=== PATIENT | female | born 1990 | race Caucasian/White ===

== ENCOUNTER → 2016-05-29 | Outpatient (CLI) | payer OTHER, BC ==
[2016-05-29 11:07] LABS: CHLORIDE,CL 100 mmol/L (98-115); SODIUM,NA 138 mmol/L (136-145)
== END ==
LOC: KA.OC 09:55
PROVIDERS: ATTEND Internal Medicine
DX: R53.83 Other fatigue (principal); Z86.39 Personal history of other endocrine, nutritional and metabolic disease
CPT/HCPCS: 36415; 80053; 84443

== ENCOUNTER 2017-06-23 13:55 | Emergency (ER) | payer OTHER ==
--- NOTE | 2017-06-23 14:01 | EDM.PDOC ---
ED HPI GENERAL MEDICAL PROBLEM - General Chief Complaint: Headache Stated Complaint: headache Time Seen by Provider: 06/23/17 14:01 Source of Information: Reports: Patient History Limitations: Reports: No Limitations - History of Present Illness INITIAL COMMENTS - FREE TEXT/NARRATIVE: 27 yo JESSIE presents to ER with headache which began this am when she woke. Pt reports taking imitrex without relief. Pt reports associated vomiting. Pt states this is the typical headache she gets but usually it's relieved by imitrex. Pt denies any head injury, denies any known triggers for her headaches. Pt denies any fever/chills. Pt reports associated photophobia. Onset: Today Duration: Hour(s): (6) Location: Reports: Head Quality: Reports: Ache Severity: Moderate Improves with: Reports: None Worsens with: Reports: None Associated Symptoms: Reports: Headaches, Nausea/Vomiting. Denies: Confusion, Chest Pain, Cough, Fever/Chills, Seizure, Shortness of Breath, Syncope, Weakness Head Pain Score (Numeric/FACES): 5 - Related Data Allergies Allergy/AdvReac Type Severity Reaction Status Date / Time Penicillins Allergy Cannot Verified 06/23/17 14:05 Remember ED ROS GENERAL - Review of Systems Review Of Systems: See Below Constitutional: Reports: No Symptoms HEENT: Reports: No Symptoms Respiratory: Reports: No Symptoms Cardiovascular: Reports: No Symptoms Endocrine: Reports: No Symptoms GI/Abdominal: Reports: No Symptoms : Reports: No Symptoms Musculoskeletal: Reports: No Symptoms Skin: Reports: No Symptoms Neurological: Reports: Headache. Denies: Dizziness, Seizure, Trouble Speaking, Difficulty Walking, Change in Speech, Gait Disturbance Psychiatric: Reports: No Symptoms Hematologic/Lymphatic: Reports: No Symptoms Immunologic: Reports: No Symptoms - Physical Exam Exam: See Below Exam Limited By: No Limitations General Appearance: Alert, WD/WN, Mild Distress Eye Exam: Bilateral Eye: EOMI, PERRL Ears: Normal External Exam, Normal Canal, Hearing Grossly Normal, Normal TMs Nose: Normal Inspection, Normal Mucosa, No Blood Throat/Mouth: Normal Inspection Head Exam: Atraumatic, Normocephalic Neck: Normal Inspection, Supple, Non-Tender, Full Range of Motion Respiratory/Chest: No Respiratory Distress, Lungs Clear, Normal Breath Sounds, No Accessory Muscle Use, Chest Non-Tender Cardiovascular: Normal Peripheral Pulses, Regular Rate, Rhythm, No Edema, No Gallop, No JVD, No Murmur, No Rub GI/Abdominal: Normal Bowel Sounds, Soft, Non-Tender, No Organomegaly, No Distention, No Abnormal Bruit, No Mass Neuro Exam (Abbreviated): Alert, Oriented, CN II-XII Intact, Normal Cognition, Normal Gait, Normal Reflexes, No Motor/Sensory Deficits Back Exam: Normal Inspection, Full Range of Motion, NT Extremities: Normal Inspection, Normal Range of Motion, Non-Tender, No Pedal Edema, Normal Capillary Refill Psychiatric: Normal Affect, Normal Mood, Tearful Skin Exam: Warm, Dry, Intact, Normal Color, No Rash Course - Vital Signs Last Recorded V/S: Last Vital Signs Temp 36.2 C 06/23/17 14:07 Pulse 98 06/23/17 14:07 Resp 16 06/23/17 14:07 BP 124/85 06/23/17 14:07 Pulse Ox 100 06/23/17 14:07 - Orders/Labs/Meds Meds: Medications Discontinued Medications Generic Name Dose Route Start Last Admin Trade Name Ivana PRN Reason Stop Dose Admin Diphenhydramine HCl 50 mg 06/23/17 14:04 06/23/17 14:19 Benadryl IVPUSH 06/23/17 14:05 50 mg ONETIME ONE Administration Ketorolac Tromethamine 30 mg 06/23/17 14:04 06/23/17 14:21 Toradol IVPUSH 06/23/17 14:05 30 mg ONETIME ONE Administration Ondansetron HCl 4 mg 06/23/17 14:05 06/23/17 14:17 Zofran IVPUSH 06/23/17 14:06 4 mg ONETIME ONE Administration - Re-Assessments/Exams Free Text/Narrative Re-Assessment/Exam: 06/23/17 15:01 headache resolved with pain medication. Pt denies any nausea at this time. Pt states she's ready to be discharged Departure - Departure Time of Disposition: 15:00 Disposition: Home, Self-Care 01 Condition: Good Clinical Impression: Migraine - Discharge Information Instructions: Migraine Headache, [id number] Forms: ED Department Discharge - Assessment/Plan Assessment:: 1. Migraine Headache Plan: 1. Discharge home 2. rest/plenty of fluids 3. follow up with PCP for further evaluation and treatment 4. return to ER for worsening symptoms
[2017-06-23] MEDS ORDERED: diphenhydrAMINE 50 MG/ML SDV IVPUSH ONE (14:04)
[2017-06-23] MEDS ORDERED: Ketorolac 30 MG/ML SDV IVPUSH ONE (14:04)
[2017-06-23] MEDS ORDERED: Ondansetron 4 MG/2 ML SDV IVPUSH ONE (14:05)
== END 2017-06-23 15:30 | disposition home or self-care (01) ==
LOC: KA.ED 13:55
DX: G43.909 Migraine, unspecified, not intractable, without status migrainosus (principal); Z88.0 Allergy status to penicillin
CPT/HCPCS: 96374; 96375; 99283; J1200; J1885; J2405

== ENCOUNTER 2017-11-28 13:52 | Emergency (ER) | payer OTHER ==
[2017-11-28 14:53] LABS: ANION GAP 7.9 mmol/L (5-15); CHLORIDE,CL 101 mmol/L (98-115); SODIUM,NA 134 mmol/L (136-145)
[2017-11-28] MEDS ORDERED: Metoprolol Tartrate 5 MG/5 ML SDV IVPUSH ONE (14:55)
--- NOTE | 2017-11-28 15:06 | EDM.PDOC ---
ED HPI GENERAL MEDICAL PROBLEM - General Chief Complaint: Cardiovascular Problem Stated Complaint: TACHYCARDIA Time Seen by Provider: 11/28/17 14:30 Source of Information: Reports: Patient History Limitations: Reports: No Limitations - History of Present Illness INITIAL COMMENTS - FREE TEXT/NARRATIVE: Patient presents with tachycardia and mid chest pressure that started at 0645 ( 8 hours ago) this morning after working out. She also noticed some tingling in her arms, nausea, and felt a little lightheaded. The feeling has not improved like she expected. She had a similar episode 11 months ago that lasted about an hour and was gone by the time she could see her PCP later that day. An EKG from that visit shows HR 65 compared to 116 today. She was prescribed a beta shikha but didn't take it long because she never had the tachycardia again until today. She wore a Holter monitor that didn't find any problem. She drinks two cups of coffee in the morning but only water (8-10 cups) the rest of the day. During the workout today she was doing lower extremity/squats. Yesterday she worked out her arms and upper body. Middle Chest Pain Score (Numeric/FACES): 6 - Related Data Allergies Allergy/AdvReac Type Severity Reaction Status Date / Time Penicillins Allergy Cannot Verified 11/28/17 14:03 Remember Home Meds: Home Meds Norgestimate-Ethinyl Estradiol [Tri-Linyah Tablet] 1 each PO DAILY 06/23/17 [ History] Phentermine 37.5 mg PO DAILY 06/23/17 [History] SUMAtriptan [Imitrex] 50 mg PO ASDIRECTED PRN 06/23/17 [History] Thyroid,Pork [Nature-Throid] 16.25 mg PO DAILY 06/23/17 [History] Thyroid,Pork [Nature-Throid] 97.5 mg PO DAILY 06/23/17 [History] Cholecalciferol (Vitamin D3) [Vitamin D] 5,000 unit PO DAILY 11/28/17 [History] Past Medical History HEENT History: Reports: Impaired Vision Cardiovascular History: Reports: Other (See Below) Other Cardiovascular History: tachycardia Gastrointestinal History: Reports: GERD 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: Neurological History: Reports: Migraines Psychiatric History: Reports: Anxiety, Depression - Infectious Disease History Infectious Disease History: Reports: Chicken Pox - Past Surgical History HEENT Surgical History: Reports: Tonsillectomy Cardiovascular Surgical History: Reports: None GI Surgical History: Reports: None Endocrine Surgical History: Reports: Thyroidectomy Other Endocrine Surgeries/Procedures: hashimotos Neurological Surgical History: Reports: None Social & Family History - Tobacco Use Smoking Status *Q: Former Smoker Years of Tobacco use: 8 Packs/Tins Daily: 1 Used Tobacco, but Quit: Yes Month/Year Tobacco Last Used: - Caffeine Use Caffeine Use: Reports: Coffee, Energy Drinks Other Caffeine Use: energize drink daily - Recreational Drug Use Recreational Drug Use: No ED ROS GENERAL - Review of Systems Review Of Systems: See Below Constitutional: Denies: Fever, Chills, Malaise, Weakness HEENT: Reports: Vertigo (She noticed a spinning feeling in her head along with nausea during her shower after the workout this morning. She has had the vertigo and nausea recur about 4 times through the day.), Vision Change (she calls it tunnel vision). Denies: Throat Pain Respiratory: Reports: Shortness of Breath. Denies: Cough Cardiovascular: Reports: Chest Pain, Lightheadedness. Denies: Syncope Endocrine: Reports: No Symptoms GI/Abdominal: Reports: Nausea. Denies: Abdominal Pain, Constipation, Diarrhea, Decreased Appetite, Vomiting : Denies: Discharge, Dysuria, Flank Pain Musculoskeletal: Reports: No Symptoms Skin: Denies: Cyanosis, Jaundice, Mottled, Pallor, Diaphoresis Neurological: Reports: Headache (slight). Denies: Confusion, Dizziness, Seizure , Syncope, Weakness Psychiatric: Reports: Anxiety (feels anxious about the fast heart rate but wasn' t feeling anxious previously). Denies: Agitation, Confusion ED EXAM, GENERAL - Physical Exam Exam: See Below Exam Limited By: No Limitations General Appearance: Alert, WD/WN, No Apparent Distress Eye Exam: Bilateral Eye: EOMI, Normal Inspection, PERRL Ears: Normal External Exam, Hearing Grossly Normal Nose: Normal Inspection, No Blood Neck: Normal Inspection, Supple, Non-Tender, Full Range of Motion. No: Carotid Bruit Respiratory/Chest: No Respiratory Distress, Lungs Clear, Normal Breath Sounds, No Accessory Muscle Use, Other (Palpation reveals tenderness over the mid sternum and medial rib junction at 4th and 5th rib bilat; worse on right. This pain is reproduced with resisted arm flexion toward the midline bilat. No crepitus or deformity noted.). No: Crackles, Rales, Rhonchi, Wheezing, Stridor Cardiovascular: Normal Peripheral Pulses, No Edema, No Gallop, No JVD, No Murmur , No Rub, Tachycardia. No: Irregularly Irregular Peripheral Pulses: 2+: Carotid (L), Carotid (R), Radial (L), Radial (R), Posterior Tibial (L), Posterior Tibial (R) GI/Abdominal: Normal Bowel Sounds, Soft, No Organomegaly, No Distention, No Abnormal Bruit, No Mass, Tender (mild suprapubic). No: Distended, Guarding, Rigid Back Exam: Normal Inspection, Full Range of Motion. No: CVA Tenderness (L), CVA Tenderness (R) Extremities: Normal Inspection, Normal Range of Motion, Non-Tender, No Pedal Edema Neurological: Alert, Oriented, Normal Cognition, No Motor/Sensory Deficits Psychiatric: Anxious Skin Exam: Warm, Dry, Intact, Normal Color, No Rash Course - Vital Signs Last Recorded V/S: Last Vital Signs Temp 98.4 F 11/28/17 13:58 Pulse 88 11/28/17 15:54 Resp 18 11/28/17 15:21 BP 121/66 11/28/17 15:54 Pulse Ox 96 11/28/17 15:21 - Orders/Labs/Meds Orders: Active Orders 24 hr Category Date Time Status EKG Documentation Completion [RC] ASDIRECTED Care 11/28/17 14:09 Active EKG Documentation Completion [RC] ASDIRECTED Care 11/28/17 15:15 Ordered Chest 1V Frontal [CR] Stat Exams 11/28/17 14:08 Ordered HCG QUALITATIVE,URINE [URCHEM] Stat Lab 11/28/17 14:10 Ordered EKG 12 Lead [EK] Routine Ther 11/28/17 14:08 Ordered EKG 12 Lead [EK] Routine Ther 11/28/17 15:15 Ordered Labs: Laboratory Tests 11/28/17 11/28/17 11/28/17 Range/Units 14:10 14:10 14:30 WBC 13.15 H (5.00-10.00) 10^3/uL RBC 5.11 (3.80-5.50) 10^6/uL Hgb 15.0 (12.0-16.0) g/dL Hct 44.0 (37.0-47.0) % MCV 86.1 (82.0-92.0) fL MCH 29.4 (27.0-31.0) pg MCHC 34.1 (32.0-36.0) g/dL RDW 12.0 (11.5-14.5) % Plt Count 268 (150-400) 10^3/uL MPV 10.2 (7.4-10.4) fL Immature Gran % (Auto) 0.1 (0.0-5.0) % Neut % (Auto) 63.1 (50.0-70.0) % Lymph % (Auto) 30.8 (20.0-40.0) % Wirt % (Auto) 5.6 (2.0-8.0) % Eos % (Auto) 0.2 L (1.0-3.0) % Baso % (Auto) 0.2 (0.0-1.0) % Immature Gran # (Auto) 0.01 (0.00-0.50) 10^3/uL Neut # (Auto) 8.31 H (2.50-7.00) 10^3/uL Lymph # (Auto) 4.05 H (1.00-4.00) 10^3/uL Wirt # (Auto) 0.74 (0.10-0.80) 10^3/uL Eos # (Auto) 0.02 L (0.10-0.30) 10^3/uL Baso # (Auto) 0.02 (0.00-0.10) 10^3/uL D-Dimer, Quantitative (<400) ng/mL Sodium (136-145) mmol/L Potassium (3.3-5.3) mmol/L Chloride (98-115) mmol/L Carbon Dioxide (21.0-32.0) mmol/L Anion Gap (5-15) mmol/L BUN (6-25) mg/dL Creatinine (0.51-1.17) mg/dL Est Cr Clr Drug Dosing mL/min Estimated GFR (MDRD) mL/min Glucose mg/dL Calcium (8.7-10.3) mg/dL Total Bilirubin (0.2-1.0) mg/dL AST (15-37) U/L ALT (12-78) U/L Alkaline Phosphatase (46-116) IU/L Troponin I (0.00-0.070) ng/mL Total Protein (6.4-8.2) g/dL Albumin (3.00-4.80) g/dL Specimen Type Urincc Urine Color Yellow (YELLOW) Urine Appearance Clear (CLEAR) Urine pH 7.0 (5.0-9.0) Ur Specific [place] 1.010 (1.005-1.030) Urine Protein Negative (NEGATIVE) mg/dL Urine Glucose (UA) Negative (NEGATIVE) mg/dL Urine Ketones Negative (NEGATIVE) mg/dL Urine Occult Blood Negative (NEGATIVE) Urine Nitrite Negative (NEGATIVE) Urine Bilirubin Negative (NEGATIVE) Urine Urobilinogen 0.2 (0.2-1.0) E.U./dL Ur Leukocyte Esterase Negative (NEGATIVE) Urine RBC 0-5 /HPF Urine WBC 0-5 /HPF Ur Epithelial Cells Few /LPF Urine Bacteria Rare (NONE TO FEW) /HPF Urine HCG, Qual Negative (NEGATIVE) 11/28/17 11/28/17 11/28/17 Range/Units 14:30 14:30 14:30 WBC (5.00-10.00) 10^3/uL RBC (3.80-5.50) 10^6/uL Hgb (12.0-16.0) g/dL Hct (37.0-47.0) % MCV (82.0-92.0) fL MCH (27.0-31.0) pg MCHC (32.0-36.0) g/dL RDW (11.5-14.5) % Plt Count (150-400) 10^3/uL MPV (7.4-10.4) fL Immature Gran % (Auto) (0.0-5.0) % Neut % (Auto) (50.0-70.0) % Lymph % (Auto) (20.0-40.0) % Wirt % (Auto) (2.0-8.0) % Eos % (Auto) (1.0-3.0) % Baso % (Auto) (0.0-1.0) % Immature Gran # (Auto) (0.00-0.50) 10^3/uL Neut # (Auto) (2.50-7.00) 10^3/uL Lymph # (Auto) (1.00-4.00) 10^3/uL Wirt # (Auto) (0.10-0.80) 10^3/uL Eos # (Auto) (0.10-0.30) 10^3/uL Baso # (Auto) (0.00-0.10) 10^3/uL D-Dimer, Quantitative 177 (<400) ng/mL Sodium 134 L (136-145) mmol/L Potassium 3.8 (3.3-5.3) mmol/L Chloride 101 (98-115) mmol/L Carbon Dioxide 28.9 (21.0-32.0) mmol/L Anion Gap 7.9 (5-15) mmol/L BUN 8 (6-25) mg/dL Creatinine 0.68 (0.51-1.17) mg/dL Est Cr Clr Drug Dosing 100.03 mL/min Estimated GFR (MDRD) > 60 mL/min Glucose 87 mg/dL Calcium 9.3 (8.7-10.3) mg/dL Total Bilirubin 0.2 (0.2-1.0) mg/dL AST 20 (15-37) U/L ALT 23 (12-78) U/L Alkaline Phosphatase 66 (46-116) IU/L Troponin I < 0.04 (0.00-0.070) ng/mL Total Protein 7.8 (6.4-8.2) g/dL Albumin 3.52 (3.00-4.80) g/dL Specimen Type Urine Color (YELLOW) Urine Appearance (CLEAR) Urine pH (5.0-9.0) Ur Specific [place] (1.005-1.030) Urine Protein (NEGATIVE) mg/dL Urine Glucose (UA) (NEGATIVE) mg/dL Urine Ketones (NEGATIVE) mg/dL Urine Occult Blood (NEGATIVE) Urine Nitrite (NEGATIVE) Urine Bilirubin (NEGATIVE) Urine Urobilinogen (0.2-1.0) E.U./dL Ur Leukocyte Esterase (NEGATIVE) Urine RBC /HPF Urine WBC /HPF Ur Epithelial Cells /LPF Urine Bacteria (NONE TO FEW) /HPF Urine HCG, Qual (NEGATIVE) Meds: Medications Discontinued Medications Generic Name Dose Route Start Last Admin Trade Name Freq PRN Reason Stop Dose Admin Metoprolol Tartrate 5 mg 11/28/17 14:55 11/28/17 15:03 Lopressor IVPUSH 11/28/17 14:56 5 mg ONETIME ONE Administration Ondansetron HCl 4 mg 11/28/17 15:36 11/28/17 15:39 Zofran IVPUSH 11/28/17 15:37 4 mg ONETIME ONE Administration - Re-Assessments/Exams Free Text/Narrative Re-Assessment/Exam: 11/28/17 15:24 WBC is elevated a little but reviewing her past labs over the last two years reveal her WBC is always in the 8-11 range. HR remained in the 112-117 range for more than 30 minutes so gave metoprolol 5 mg IV which brought it down to low 90's then 80's. She felt increased chest pressure so repeated EKG which is normal. Compared today's EKG's with the EKG from Dec 2016 which is similar except for the HR. 11/28/17 15:38 Patient tells me that she feels better with less pressure in her chest now that the heart rate is down. She is feeling vertigo and nausea again now so will give zofran. No nystagmus. 11/28/17 16:24 After the zofran both the nausea and the vertigo are resolved. She feels and appears much better. I had visited with Dr. Chandrika Gordon who felt this is likely caused by her phentermine. I directed patient to discontinue phentermine and to take metoprolol as directed if the tachycardia recurs. She will also recheck with Dr. Gordon if that happens. Patient discharged to home in stable condition. Departure - Departure Time of Disposition: 16:22 Disposition: Home, Self-Care 01 Condition: Good Clinical Impression: Sinus tachycardia, Adverse effect of phentermine Instructions: Sinus Tachycardia Referrals: Chandrika Musa MD [Primary Care Provider] - Forms: ED Department Discharge Additional Instructions: 1. Continue the 8 cups of water daily. 2. Stop the Phentermine as this is likely causing your fast heart rate ( tachycardia). 3. Take the metoprolol as directed if tachycardia returns. 4. Follow up with your PCP as needed; especially if the tachycardia recurs. 5. Go to ER as needed. - My Orders Last 24 Hours: My Active Orders 11/28/17 14:08 Chest 1V Frontal [CR] Stat EKG 12 Lead [EK] Routine 11/28/17 14:09 EKG Documentation Completion [RC] ASDIRECTED 11/28/17 14:10 HCG QUALITATIVE,URINE [URCHEM] Stat 11/28/17 15:15 EKG Documentation Completion [RC] ASDIRECTED EKG 12 Lead [EK] Routine - Assessment/Plan Last 24 Hours: My Active Orders 11/28/17 14:08 Chest 1V Frontal [CR] Stat EKG 12 Lead [EK] Routine 11/28/17 14:09 EKG Documentation Completion [RC] ASDIRECTED 11/28/17 14:10 HCG QUALITATIVE,URINE [URCHEM] Stat 11/28/17 15:15 EKG Documentation Completion [RC] ASDIRECTED EKG 12 Lead [EK] Routine
[2017-11-28] MEDS ORDERED: Ondansetron 4 MG/2 ML SDV IVPUSH ONE (15:36)
== END 2017-11-28 16:35 | disposition home or self-care (01) ==
LOC: KA.ED 13:52
DX: R00.0 Tachycardia, unspecified (principal); T50.5X5A Adverse effect of appetite depressants, initial encounter; Z88.0 Allergy status to penicillin; Z79.899 Other long term (current) drug therapy; Z87.891 Personal history of nicotine dependence
CPT/HCPCS: 36415; 71045; 80053; 81001; 81025; 84484; 85025; 85379; 93005; 96374; 96375; 99285; J2405; J3490

== ENCOUNTER 2024-08-09 02:31 | Emergency (ER) | payer OTHER ==
[2024-08-09 04:23] LABS: ANION GAP 16.4 mmol/L (5-15); BLOOD UREA NITROGEN,BUN 12 mg/dL (7-18); CARBON DIOXIDE,CO2 25.5 mmol/L (21.0-32.0); CHLORIDE,CL 99 mmol/L (98-107); CREATININE 0.76 mg/dL (0.51-1.17); EST CRCL DRUG DOSING (CG) 84.05 mL/min; GLUCOSE RANDOM 118 mg/dL (70-140); POTASSIUM,K 3.9 mmol/L (3.5-5.1); SODIUM,NA 137 mmol/L (136-145)
[2024-08-09 04:24] LABS: ACETAMINOPHEN < 0.0 ug/mL (10.0-30.0); ESTIMATED GFR 107 mL/min (>=60)
== END 2024-08-09 04:35 | disposition home or self-care (01) ==
LOC: KA.ED 02:31
DX: T43.622A Poisoning by amphetamines, intentional self-harm, initial encounter (principal); T39.312A Poisoning by propionic acid derivatives, intentional self-harm, initial encounter; Z88.0 Allergy status to penicillin; Z79.899 Other long term (current) drug therapy
CPT/HCPCS: 36415; 80048; 80143; 80179; 99284